=== PATIENT | female | born 1945 | race Caucasian/White ===

== ENCOUNTER 2018-07-03 20:47 | Emergency (ER) | payer MEDICARE ==
[~2018-07-03] VITALS: Ht 172.7 cm; Wt 97.5 kg
[2018-07-03 20:47] VITALS: BP 104/41
--- NOTE | 2018-07-03 20:47 | NUR ---
PATIENT BIB EMS TO ER BED 9.
--- NOTE | 2018-07-03 20:47 | NUR ---
BIB EMS. PT PRESENTS TO ED WITH HYPOTENTION. BP 103/76, HR 82 UPON ARRIVAL. VSS, A&OX4, POSITIONED IN BED FOR COMFORT. ER MD AWARE. CONTINUE TO MONITOR.
[2018-07-03] MEDS ORDERED: NACL 0.9% 1,000 ML IV ONE (22:05)
--- NOTE | 2018-07-03 23:21 | NUR ---
UA DONE, 24GA LT HAND
--- NOTE | 2018-07-04 | NUR ---
PT IN BED RESTING WITH EYES OPEN. A&OX4. STABLE. CONTINUE TO MONITOR.
[2018-07-04 00:26] LABS: HEMATOCRIT 40.3 % (36-48); HEMOGLOBIN 12.8 g/dL (12.0-16.0); MEAN CORPUSCULAR HEMOGLOBIN 26 pg (27-31); MEAN CORPUSCULAR HGB CONC 32 g/dL (33-37); PLATELET COUNT (AUTO) 115 K/uL (140-450); RED BLOOD CELL COUNT(AUTO) 4.86 MIL/uL (4.20-5.40); RED CELL DISTRIBUTION WIDTH 14.4 % (11.6-13.7); WHITE BLOOD COUNT (AUTO) 10.3 K/uL (4.8-10.8)
[2018-07-04 00:37] LABS: ANION GAP 14.5 (8-16); CARBON DIOXIDE 24.5 mmol/L (21-32)
[2018-07-04 00:43] LABS: ALBUMIN 3.2 g/dL (3.4-5.0); LYMPHOCYTES % (MANUAL) 4 % (20-46); MONOCYTES % (MANUAL) 6 % (5-12); TOTAL BILIRUBIN 0.2 mg/dL (0.0-1.0)
[2018-07-04 00:50] LABS: CREATINE KINASE MB 0.3 ng/mL (0-3.6)
--- NOTE | 2018-07-04 01:18 | NUR ---
PT IN BED RESTING WITH EYES CLOSED. VSS. CONTINUE TO MONITOR.
--- NOTE | 2018-07-04 02:00 | NUR ---
PT IN BED RESTING WITH EYES OPEN. A&OX4. STABLE. CONTINUE TO MONITOR.
[2018-07-04 03:01] VITALS: BP 113/36
--- NOTE | 2018-07-04 03:01 | NUR ---
Patient to be transferred to [facility]. Is being transferred due to Pre-syncopy and hypotention. Receiving facility has accepting physician and available space. ER physician has signed transfer form. Patient or responsible constitution party has agreed to transfer and signed form. Patient belongings inventoried and will be sent with patient. Copy of nursing notes, lab reports, EKG, Physicians Orders and X-rays to be sent with patient. [facility] called for transfer.
== END 2018-07-04 03:02 | disposition short-term general hospital (02) ==
LOC: MED 20:47
DX: I95.9 Hypotension, unspecified (principal); R55 Syncope and collapse; F41.9 Anxiety disorder, unspecified; E78.5 Hyperlipidemia, unspecified; Z91.040 Latex allergy status
CPT/HCPCS: 36415; 71045; 80053; 81002; 82550; 82553; 83880; 84484; 85025; 93005; 96360; 99285; J7030; Q0092